=== PATIENT | female | born 1950 | race Caucasian/White ===

== ENCOUNTER → 2025-04-15 | Day surgery (SDC) | payer MEDICARE ==
[2025-04-15] VITALS (7 sets, daily range): BP systolic 130–146; BP diastolic 65–72; PULSE 56–68; RESP 10–16; TEMP 98; O2SAT 95–100
[~2025-04-15] VITALS: Ht 165.1 cm; Wt 53.1 kg
[~2025-04-15] MED LIST: ALEN70TA60 PO; BUPIVAcaine 2.5mg/ml inj 50ml vial (contains preservative) ONE; HYDR12.55 PO; LIDOcaine 2% (20mg/ml) 5ml vial ONE; LISI20TA28 PO; fentaNYL/PF 50MCG/1 ML 2ML syringe IV PRN; fentaNYL/PF 50MCG/1 ML 2ML syringe ONE; hydrALAZINE 20mg/ml inj. IV PRN; labetalol 20mg/4ml (5mg/ml) syringe IV PRN; morphine 2 MG/ML inj. syringe IV PRN; morphine 4 MG/ML inj SYRINge IV PRN; ondansetron/PF 4mg/2ml inj IV PRN; propofol 10mg/ml 20ml vial IV ONE; ringers solution, lacted 1,000 ML IV SCH
[2025-04-15] MEDS: clindamycin 600mg/D5W 50ml 50 ML IV ONE (07:26)
--- NOTE | 2025-04-15 07:57 | ELECTROCARDIOGRAPH REPORT ---
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
--- NOTE | 2025-04-15 08:10 | RADIOLOGY REPORT ---
EXAM: XR Chest, 2 Views CLINICAL INDICATION: Pain TECHNIQUE: Frontal and lateral views of the chest. COMPARISON: No relevant prior studies available. FINDINGS: LUNGS AND PLEURAL SPACES: Unremarkable. No consolidation. No pneumothorax. HEART: Unremarkable. No cardiomegaly. MEDIASTINUM: Unremarkable. Normal mediastinal contour. BONES/JOINTS: Unremarkable. No acute fracture. IMPRESSION: No acute cardiopulmonary process.
[2025-04-15 08:16] LABS: BASOPHILS # (AUTO) 0.1 X10'3 (0-0.2); BASOPHILS % (AUTO) 0.8 % (0-1); EOSINOPHILS # (AUTO) 0.1 X10'3 (0-0.9); EOSINOPHILS % (AUTO) 1.7 % (0-6); LYMPHOCYTES # (AUTO) 1.2 X10'3 (1.1-4.8); LYMPHOCYTES % (AUTO) 17.5 % (21-51); MEAN CORPUSCULAR HEMOGLOBIN 30.9 PG (27.0-31.0); MEAN CORPUSCULAR HGB CONC 33.9 g/dL (33.0-36.5); MEAN CORPUSCULAR VOLUME 91.2 FL (78-98); MONOCYTES # (AUTO) 0.6 X10'3 (0-0.9); MONOCYTES % (AUTO) 7.8 % (2-12); NEUTROPHILS # (AUTO) 5.2 X10'3 (1.8-7.7); NEUTROPHILS % (AUTO) 72.2 % (42-75); PRE OP HEMOGLOBIN 14.3 g/dL (12.0-16.0); PRE OP PLATELET COUNT 230 X10'3 (140-440); PRE OP WHITE BLOOD COUNT 7.2 10'3 (4.8-10.8); RED BLOOD COUNT 4.61 X10'6 (4.20-5.60); RED CELL DISTRIBUTION WIDTH 13.4 % (11.5-14.5)
[2025-04-15 08:20] LABS: ALBUMIN 3.7 G/DL (3.4-5.0); ALBUMIN/GLOBULIN RATIO 1.1 (1.1-1.5); ALKALINE PHOSPHATASE 76 IU/L (46-116); BLOOD UREA NITROGEN 23 MG/DL (7-18); BUN/CREATININE RATIO 24.5 (10.0-20.0); CALCIUM 8.8 MG/DL (8.5-10.1); CHLORIDE 104 MMOL/L (99-107); CREATININE 0.94 MG/DL (0.40-0.90); PRE OP ALT 48 U/L (30-65); PRE OP ANION GAP 8 (8-16); PRE OP AST 34 U/L (10-37); PRE OP BILIRUB, TOTAL 0.9 MG/DL (0.0-1.0); PRE OP GLUCOSE 90 MG/DL (70-104); PRE OP POTASSIUM 3.8 MMOL/L (3.4-5.1); PRE OP SODIUM 142 MMOL/L (135-145); TOTAL CARBON DIOXIDE 30.3 MMOL/L (24-32); TOTAL PROTEIN 7.1 G/DL (6.4-8.2); eCRCL 45 ML/MIN; eGFR 59 ML/MIN
[2025-04-15] MEDS: BUPIVAcaine 0.25% w/Epi /PF 30ml vial IJ ONE (09:11)
[2025-04-15] MEDS: famotidine 20mg tablet PO ONE (09:32)
--- NOTE | 2025-04-15 10:49 | OPERATIVE REPORT ---
Operative Report Providers to ~ Date of Procedure: Apr 15, 2025 Pre-Operative Diagnosis: Traumatic amputation left index finger Post-Operative Diagnosis SAME as PRE-Op Procedure Performed Revision amputation left index finger with direct closure Surgeon: Josh Soliman MD Ply Cutter None Anesthesiologist: Kareem Linares Type of Anesthesia: Other (Local anesthetic with sedation) Findings: Complications None Prosthetics\Implants used: None Estimated Blood Loss: None Specimen Removed: None Description of Procedure: This patient is a 74-year-old woman who suffered a traumatic avulsion amputation of the tip of the index finger a few weeks ago. She had been doing wound care and dressing changes. Examination and x-rays show near exposure of bone at the tip through nonviable tissue. Surgery is indicated to improve function. Risks benefits were discussed with the patient. The main risks of this type of procedures neuroma formation but there was also the potential complication of failure to heal wound opening and need for revision. She agreed to proceed. Once in the operating room local anesthetic was infiltrated the base of the digit. Proper time-out was performed and the arm was prepped and draped in usual manner. A tourniquet was elevated on the forearm. The nonviable tissue of the tip of the finger was opened and incised. The distal phalanx was very prominent so a rongeur was used to remove about 50% of the distal phalanx leaving the tendon attachments intact. Nonviable tissue around the tip of the finger was sharply removed. There was some granulating tissue which I felt was going to heal well so we did not perform a V-Y plasty or amputate at the distal interphalangeal joint. We are able to get good adequate soft tissue coverage from the tip of the finger with a using Prolene suture. A small splint was applied after a sterile dressing. The tourniquet was released and the hand perfused well. She was taken to the recovery room in stable condition JOSH SOLIMAN Jr., MD Apr 15, 2025 10:49
== END | disposition home or self-care (01) ==
LOC: PAS 07:00
PROVIDERS: ATTEND Orthopaedic Surgery Hand Surgery
DX: S68.111A Complete traumatic metacarpophalangeal amputation of left index finger, initial encounter (principal); M81.0 Age-related osteoporosis without current pathological fracture; I10 Essential (primary) hypertension; G43.909 Migraine, unspecified, not intractable, without status migrainosus; X58.XXXA Exposure to other specified factors, initial encounter; Y93.89 Activity, other specified; Y92.89 Other specified places as the place of occurrence of the external cause; Y99.8 Other external cause status; Z88.0 Allergy status to penicillin; Z88.8 Allergy status to other drugs, medicaments and biological substances
CPT/HCPCS: 26951; 36415; 71045; 80053; 85025; 93005; A4618; A6222; A6402; A7000; J0665; J2003; J2704; J3010; J3490; J7030; J7120; Z7506; Z7512; Z7610; A6449

== ENCOUNTER 2025-06-17 08:45 | Day surgery (SDC) | payer MEDICARE ==
[2025-06-17] VITALS (7 sets, daily range): BP systolic 134–158; BP diastolic 64–87; PULSE 48–58; RESP 12–16; TEMP 98; O2SAT 99–100
[~2025-06-17] VITALS: Ht 165.1 cm; Wt 52.5 kg
[~2025-06-17 08:45] MED LIST changes: -BUPIVAcaine 2.5mg/ml inj 50ml vial (contains preservative) ONE; +BUPIVAcaine/PF 2.5mg/ml (0.25%) 10ml vial ONE; +ERGO400C PO; +MAGN400C PO; +OSC500T PO; -fentaNYL/PF 50MCG/1 ML 2ML syringe IV PRN; -fentaNYL/PF 50MCG/1 ML 2ML syringe ONE; -hydrALAZINE 20mg/ml inj. IV PRN; -labetalol 20mg/4ml (5mg/ml) syringe IV PRN; -morphine 2 MG/ML inj. syringe IV PRN; -morphine 4 MG/ML inj SYRINge IV PRN; -ondansetron/PF 4mg/2ml inj IV PRN; -propofol 10mg/ml 20ml vial IV ONE; -ringers solution, lacted 1,000 ML IV SCH
[2025-06-17] MEDS ORDERED: hydrALAZINE 20mg/ml inj. IV PRN (09:25)
[2025-06-17] MEDS ORDERED: ondansetron/PF 4mg/2ml inj IV PRN (09:25)
[2025-06-17] MEDS ORDERED: HYDROmorphone/PF 0.2 MG/ML SYRINGE IV PRN ×2 (09:25)
[2025-06-17] MEDS ORDERED: morphine 4 MG/ML inj SYRINge IV PRN (09:25)
[2025-06-17] MEDS ORDERED: labetalol 20mg/4ml (5mg/ml) syringe IV PRN (09:25)
[2025-06-17] MEDS ORDERED: acetaminophen 1,000mg/100ml IV 100 ML IV PRN (09:25)
[2025-06-17] MEDS ORDERED: ringers solution, lacted 1,000 ML IV SCH (09:25)
[2025-06-17] MEDS: ceFAZolin 2gm/dext,iso 50mL 50 ML IV ONE (09:41)
[2025-06-17] MEDS: ringers solution, lacted 1,000 ML IV SCH (09:42)
[2025-06-17] MEDS ORDERED: fentaNYL/PF 50MCG/1 ML 2ML syringe ONE (09:59)
[2025-06-17] MEDS ORDERED: propofol inj 20 ML IV ONE (10:09)
[2025-06-17] MEDS ORDERED: midazolam 1 mg/ML 2ml injection ONE (10:09)
--- NOTE | 2025-06-17 11:47 | OPERATIVE REPORT ---
Operative Report Providers to ~ Date of Procedure: Jun 17, 2025 Pre-Operative Diagnosis: AMPUTATION RIGHT INDEX FINGERTIP Post-Operative Diagnosis SAME as PRE-Op Procedure Performed Revision amputation right index finger with direct closure and neurectomies at the level of the middle phalanx Surgeon: Josh Soliman MD Social Worker Clinical None Anesthesiologist: Bonita Orr Type of Anesthesia: Other Findings: Estimated Blood Loss: None Specimen Removed: None Description of Procedure: The patient is a 74-year-old woman who suffered a traumatic crush injury to the tip of the finger which amputated the tip. She then underwent revision of the exposed tip of the finger with closure. 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 Surgery is indicated to improve function. Risks and benefits were discussed with the patient and her . Some of the risks include but are not limited to infection, bleeding, sensitivity at the tip, persistent nail growth. She agreed to proceed. Once in the operating room local anesthetic was infiltrated at the base of the digit. A time-out procedure was observed. A tourniquet was elevated on the forearm. The fishmouth incision was made around the distal port of the finger especially dorsally where the nail matrix was located. The nail matrix area was excised. Because of lack of skin issues the bone had to be shortened so was done at the level of the distal part of the middle phalanx. Bone edges were trimmed up appropriately so there was adequate soft tissue coverage. After trimming the edges the area was closed with a Prolene suture. A sterile dressing was then applied and the tourniquet was released. The patient was taken to the recovery room in stable condition and tolerated the procedure well. JOSH SOLIMAN Jr., MD Jun 17, 2025 11:47
== END 2025-06-17 11:23 | disposition home or self-care (01) ==
LOC: PAS 08:45
PROVIDERS: ATTEND Orthopaedic Surgery Hand Surgery
DX: S67.190A Crushing injury of right index finger, initial encounter (principal); I10 Essential (primary) hypertension; Z79.2 Long term (current) use of antibiotics; Z79.899 Other long term (current) drug therapy; Z98.890 Other specified postprocedural states; Z88.0 Allergy status to penicillin; Z88.8 Allergy status to other drugs, medicaments and biological substances; Z82.49 Family history of ischemic heart disease and other diseases of the circulatory system; X58.XXXA Exposure to other specified factors, initial encounter; Y93.89 Activity, other specified; Y92.89 Other specified places as the place of occurrence of the external cause; Y99.8 Other external cause status
CPT/HCPCS: 26951; 82948; A4215; A4618; A7000; J0690; J2003; J2250; J2704; J3010; J3490; J7030; J7120; Z7506; Z7512; Z7610